=== PATIENT | male | born 1950 | race Caucasian/White ===

== ENCOUNTER 2019-08-05 15:58 | Inpatient (IN) | payer MEDICARE ==
[2019-08-05] MEDS ORDERED: Magnesium 2 GM/50 ML BAG (IN WATER) ONE (16:25)
[2019-08-05 21:05] LABS: Troponin I 0.031 ng/mL (< 0.028)
[2019-08-05 21:07] VITALS: BMI 28.3
[2019-08-05] MEDS ORDERED: Acetaminophen 325 MG TAB PO PRN (22:18)
[2019-08-05] MEDS ORDERED: hydrALAZINE 20 MG/ML VIAL SLOW IVP PRN (22:18)
[2019-08-05] MEDS ORDERED: Bacteriostatic Water 30 ML VIAL FS PRN (22:22)
[2019-08-05] MEDS: Nicotine 14 MG PATCH TD SCH (22:51)
[2019-08-05] MEDS: methylPREDNISolone Sod Succ 40 MG VIAL IVP SCH (22:51)
[2019-08-05] MEDS ORDERED: Finasteride 5 MG TAB PO SCH (23:00)
[2019-08-05] MEDS ORDERED: PARoxetine 20 MG TAB PO SCH (23:00)
[2019-08-05] MEDS ORDERED: Metoprolol Tartrate 50 MG TAB PO SCH (23:00)
[2019-08-05] MEDS ORDERED: Tamsulosin HCl 0.4 MG CAP PO SCH (23:00)
[2019-08-05] MEDS ORDERED: Atorvastatin Calcium 20 MG TAB PO SCH (23:00)
--- NOTE | 2019-08-06 00:12 | HP ---
PRIMARY CARE PHYSICIAN: Erum Aquino, in [place]. CHIEF COMPLAINT: Shortness of breath. HISTORY OF PRESENT ILLNESS: Mr. Wolff is a pleasant 69-year-old gentleman, who has a history of chronic respiratory failure with hypoxemia due to COPD. He says that he was visiting his son and was actually on his way home when he was [place] [facility] [place] and says that he could barely breathe. He says it was building up on him for the past 2 to 3 days. He has noted increasing shortness of breath and decrease in his strength. He feels very shaky. He also notes some serious nasal congestion, which makes it hard for him to breathe through his nose with his oxygen on. He denies having any cough. No shortness of breath. No fever, no chills, no nausea, no vomiting. He says he made his way to the emergency room in [place], where he was found to be hypoxic. The O2 saturation was reported at being 30%. He was given Levaquin, Mag, and a DuoNeb and then transferred to our facility. He says he feels much better. He says he feels like he can walk, but he still is not close to his baseline. Otherwise, the patient notes increasing lower extremity edema, but no other complaints. REVIEW OF SYSTEMS: All systems were reviewed and are negative except for that mentioned in the history of present illness. PAST MEDICAL HISTORY: Significant for hypertension, COPD, he is on 3 L nasal cannula, hypercholesterolemia, gastroesophageal reflux disease, and BPH. PAST SURGICAL HISTORY: He has had a hernia repair. ALLERGIES: HE IS ALLERGIC TO CHANTIX, WHICH CAUSES BAD REACTIONS AND BAD DREAMS. SOCIAL HISTORY: He is . He is a full code. He smokes 6-7 cigarettes daily for the past 50 years. Denies any alcohol or drug use. FAMILY HISTORY: Significant for heart disease in his father. CURRENT MEDICATIONS: 1. Include: Theophylline 300 mg 2 tablets twice daily. 1. Finasteride 5 mg daily. 2. Metoprolol 75 mg in the a.m., 50 in the evening. 3. Chlorthalidone 25 mg daily. 4. Lisinopril 20 mg daily. 5. 3 L of oxygen. 6. Spiriva 118 mcg inhaled daily. 7. Ventolin inhaler. 8. Potassium chloride 10 mEq daily. 9. Symbicort 160/4.5 two puffs twice daily. 10. Simvastatin 40 mg daily. 11. Omeprazole 20 mg daily. PHYSICAL EXAMINATION: GENERAL: He is alert and oriented. He appears to be in some distress due to dyspnea. He is well developed, well nourished blood pressure was 154/67, heart rate 78, respiratory rate of 22, temperature is 98.5, O2 saturation was 100% on 4 L. HEENT: Pupils are equal, round, and reactive. Extraocular muscles are intact. Sclerae anicteric. Throat, no erythema, no exudates. NECK: No adenopathy, no bruits. LUNGS: He has poor air movement and wheezing in both the right and left lung loaiza. CARDIOVASCULAR: He has distant heart tones. The heart rate is regular. There is no murmurs, no clicks, no rubs. ABDOMEN: Obese, it is soft, nontender, and nondistended. Positive for bowel sounds. No rebound. No guarding. No organomegaly. EXTREMITIES: There is no calf tenderness, no joint effusions. He has 1+ edema. NEUROLOGICAL: The exam is grossly nonfocal. LABORATORY DATA: Results were reviewed from [place]. Sodium was 143, potassium is 3.7, chloride is 89, CO2 is 40, BUN of 15, creatinine 0.84, glucose was 160. White blood cell count 11.6, hemoglobin is 14.3, hematocrit is 48.3, and platelet count is 138. IMAGIN. Chest x-ray, heart size is normal. There was no evidence of any infiltrate or edema and this is by my reading. 2. EKG was sinus, the rate was 71. There was evidence of left atrial enlargement also by my reading. ASSESSMENT: 1. This is a pleasant 69-year-old gentleman, who presents with [id number] respiratory failure due to chronic obstructive pulmonary disease. He will be admitted, started on DuoNebs, steroids, and empiric antibiotics. If his symptoms do not improve, then consideration for an ABG will be done and he could require BiPAP later on this night. Depending on how he does, he may also need pulmonary consultation. We will need to check a theophylline level. 2. 3. Hypertension. We will reconcile and restart his home medications. 4. Gastroesophageal reflux disease. Continue proton pump inhibitor. 5. Benign prostatic hypertrophy. Continue finasteride. 6. He will be placed on deep venous thrombosis prophylaxis. Job ID: [id number]
[2019-08-06 04:44] LABS: BUN (Urea Nitrogen) 24 mg/dL (8.4-25.7); Calc. Creatinine Clearance 100 mL/min (70-130); Calcium 9.3 mg/dL (7.8-10.44); Estimated GFR-MDRD 79; Glucose 184 mg/dL (80-115)
[2019-08-06 04:53] LABS: Anion Gap 19 mmol/L (10-20); Carbon Dioxide 34 mmol/L (23-31); Chloride 91 mmol/L (98-107); Potassium 4.3 mmol/L (3.5-5.1); Sodium 140 mmol/L (136-145)
[2019-08-06] MEDS: methylPREDNISolone Sod Succ 40 MG VIAL IVP SCH ×3 (05:24→18:19)
[2019-08-06 05:31] LABS: #Lymphocytes 0.3 thou/uL (1.20-3.40); #Monocytes 0.2 thou/uL (0.11-0.59); #Neutrophils 6.4 thou/uL (1.40-6.50); %Eosinophils 0.2 % (0.0-10.0); %Monocytes 2.4 % (0.0-10.0); %Neutrophils 93.3 % (42.0-75.0); Hemoglobin 13.6 g/dL (14.0-18.0); Mean Corpuscular HGB CONC 32.2 g/dL (32.0-36.0); Mean Corpuscular Hemoglobin 30.9 pg (27.0-31.0); Mean Corpuscular Volume 95.9 fL (78.0-98.0); Mean Platelet Volume 9.2 fL (7.4-10.4); Platelet Count 110 thou/uL (130-400); Platelet Morphology Comment Appears Decreased; RBC Morphology Normal; White Blood Cell (WBC) Count 6.9 thou/uL (4.8-10.8)
[2019-08-06] MEDS: Mometasone/Formoterol 120 PUFF INHALER INH SCH ×2 (06:36→18:57)
[2019-08-06] MEDS: Albuterol Sulfate 1.25 MG/3 ML NEB NEB SCH ×4 (07:00→14:21)
[2019-08-06] MEDS ORDERED: Metoprolol Tartrate 50 MG TAB PO SCH ×2 (09:00→21:00)
[2019-08-06] MEDS ORDERED: Lisinopril 20 MG TAB PO SCH (09:00)
[2019-08-06] MEDS: Enoxaparin Sodium 40 MG/0.4 ML SYRINGE SC SCH (10:05)
[2019-08-06] MEDS: Potassium Chloride 10 MEQ TAB PO SCH ×2 (10:05→18:09)
[2019-08-06] MEDS: Chlorthalidone 25 MG TAB PO SCH ×2 (10:10→10:22)
--- NOTE | 2019-08-06 13:08 | PDOC.HOSPP ---
- Subjective Encounter Date: 08/06/19 Encounter Time: 10:30 Subjective: pt up in bed gets very sob on minimal exertion - Objective Vital Signs & Weight: Vital Signs (12 hours) Temp Pulse Resp BP Pulse Ox 08/06/19 12:55 83 20 100 08/06/19 11:45 98.5 F 80 23 H 123/59 L 92 L 08/06/19 09:46 89 18 97 08/06/19 09:01 98.0 F 75 18 102/50 L 99 08/06/19 06:35 93 20 100 08/06/19 04:52 97.5 F L 80 20 115/56 L 97 08/06/19 02:18 22 H Weight Weight 208 lb 14.4 oz Result Diagrams: 08/06/19 04:04 08/06/19 04:04 Hospitalist ROS - Review of Systems Respiratory: reports: shortness of breath Gastrointestinal: denies: nausea, vomiting, abdominal pain, diarrhea, constipation, melena, hematochezia, other Musculoskeletal: denies: neck pain, shoulder pain, arm pain, back pain, hand pain, leg pain, foot pain, other - Medication Medications: Active Medications Generic Name Dose Route Start Last Admin Trade Name Freq PRN Reason Stop Dose Admin Albuterol Sulfate 1.25 mg 08/05/19 21:00 08/06/19 12:54 Albuterol Sulfate NEB Not Given [id number] NORTH Albuterol/Ipratropium 3 ml 08/05/19 22:30 08/06/19 12:55 Duoneb NEB 3 ml [id number] NORTH Administration Chlorthalidone 25 mg 08/06/19 09:00 08/06/19 10:22 Hygroton PO 25 mg DAILY NORTH Administration Enoxaparin Sodium 40 mg 08/06/19 09:00 08/06/19 10:05 Lovenox SC 40 mg 0900 NORTH Administration Methylprednisolone Sodium Succinate 40 mg 08/05/19 23:59 08/06/19 12:00 Solu-Medrol IVP 40 mg Q6HR NORTH Administration Mometasone Furoate/Formoterol Fumar 1 puff 08/06/19 06:30 08/06/19 06:36 Dulera 200 Mcg/5 Mcg Inhaler INH 1 puff BID-RT NORTH Administration Nicotine 14 mg 08/05/19 23:00 08/05/19 22:51 Nicoderm Patch TD 14 mg Q24HR NORTH Administration Pantoprazole Sodium 40 mg 08/06/19 09:00 08/06/19 10:06 Protonix PO 40 mg DAILY NORTH Administration Potassium Chloride 10 meq 08/06/19 08:00 08/06/19 10:05 Klor-Con 10 PO 10 meq BID-WM NORTH Administration Theophylline 300 mg 08/06/19 09:00 08/06/19 10:06 Theophylline Er PO 300 mg BID NORTH Administration - Exam Neck: negative: supple, symmetric, no JVD, no thyromegaly, no lymphadenopathy, no carotid bruit, JVD Heart: negative: RRR, no murmur, no gallops, no rubs, normal peripheral pulses, irregular, diminshed peripheral pulses, murmur present, II/IV, III/IV Respiratory: rhonchi Respiratory - other findings: minimal air movement Hosp A/P (1) Acute respiratory failure with hypoxia Code(s): J96.01 - ACUTE RESPIRATORY FAILURE WITH HYPOXIA Status: Acute (2) COPD with exacerbation Code(s): J44.1 - CHRONIC OBSTRUCTIVE PULMONARY DISEASE W (ACUTE) EXACERBATION Status: Acute (3) HTN (hypertension) Code(s): I10 - ESSENTIAL (PRIMARY) HYPERTENSION Status: Acute - Plan will continue oxygen/neb and steroids. pt uses 2-3 L of oxygen at home at rest and at ambulation. echo pending. will check RVP.
[2019-08-06] MEDS: Tamsulosin HCl 0.4 MG CAP PO SCH (20:40)
[2019-08-06] MEDS: Finasteride 5 MG TAB PO SCH (20:40)
[2019-08-06] MEDS: Atorvastatin Calcium 20 MG TAB PO SCH (20:40)
[2019-08-06] MEDS: Metoprolol Tartrate 50 MG TAB PO SCH (20:41)
[2019-08-06] MEDS: PARoxetine 20 MG TAB PO SCH (20:41)
[2019-08-07] MEDS: methylPREDNISolone Sod Succ 40 MG VIAL IVP SCH ×3 (00:17→20:27)
[2019-08-07] MEDS: Nicotine 14 MG PATCH TD SCH ×2 (00:17→22:50)
[2019-08-07] MEDS: Albuterol Sulfate 1.25 MG/3 ML NEB NEB SCH ×10 (04:32→21:20)
[2019-08-07 05:08] LABS: BUN (Urea Nitrogen) 28 mg/dL (8.4-25.7); Calc. Creatinine Clearance 111 mL/min (70-130); Calcium 9.3 mg/dL (7.8-10.44); Estimated GFR-MDRD 90; Glucose 146 mg/dL (80-115)
[2019-08-07 05:18] LABS: Anion Gap 14 mmol/L (10-20); Chloride 87 mmol/L (98-107); Sodium 139 mmol/L (136-145)
[2019-08-07 05:22] LABS: Carbon Dioxide 42 mmol/L (23-31)
[2019-08-07] MEDS: Mometasone/Formoterol 120 PUFF INHALER INH SCH ×2 (07:18→18:36)
[2019-08-07] MEDS: Chlorthalidone 25 MG TAB PO SCH (08:51)
[2019-08-07] MEDS: Lisinopril 20 MG TAB PO SCH (08:52)
[2019-08-07] MEDS: Metoprolol Tartrate 50 MG TAB PO SCH ×2 (08:52→20:27)
[2019-08-07] MEDS: Enoxaparin Sodium 40 MG/0.4 ML SYRINGE SC SCH (08:52)
[2019-08-07] MEDS: Potassium Chloride 10 MEQ TAB PO SCH ×2 (09:00→16:42)
[2019-08-07 11:52] LABS: Ref Lab Test Ordered RVP; Reference Lab Name LABCORP
--- NOTE | 2019-08-07 12:44 | PDOC.HOSPP ---
- Subjective Encounter Date: 08/07/19 Encounter Time: 10:30 Subjective: pt up in bed feels sob. But feels well than yesterday. - Objective Vital Signs & Weight: Vital Signs (12 hours) Temp Pulse Resp BP Pulse Ox 08/07/19 12:19 81 18 97 08/07/19 11:10 97.9 F 73 22 H 102/52 L 99 08/07/19 09:57 73 20 100 08/07/19 08:40 97.8 F 93 20 141/64 H 96 08/07/19 08:15 96 08/07/19 07:16 85 18 98 08/07/19 04:32 90 16 89 L 08/07/19 03:30 98 F 84 20 118/56 L 100 08/07/19 02:05 86 16 96 Weight Weight 208 lb 14.4 oz I&O: 08/06/19 08/07/19 08/08/19 06:59 06:59 06:59 Intake Total 240 Output Total 400 Balance -160 Result Diagrams: 08/06/19 04:04 08/07/19 04:23 Hospitalist ROS - Review of Systems Respiratory: reports: shortness of breath Cardiovascular: denies: chest pain, palpitations, orthopnea, paroxysmal noc. dyspnea, edema, light headedness, other Gastrointestinal: denies: nausea, vomiting, abdominal pain, diarrhea, constipation, melena, hematochezia, other - Medication Medications: Active Medications Generic Name Dose Route Start Last Admin Trade Name Freq PRN Reason Stop Dose Admin Albuterol Sulfate 1.25 mg 08/05/19 21:00 08/07/19 04:32 Albuterol Sulfate NEB 1.25 mg [id number] NORTH Administration Albuterol/Ipratropium 3 ml 08/05/19 22:30 08/07/19 09:57 Duoneb NEB 3 ml [id number] NORTH Administration Albuterol/Ipratropium 3 ml 08/06/19 13:06 08/07/19 12:19 Duoneb NEB 3 ml [id number] PRN Administration SOB &/or Wheezing Atorvastatin Calcium 20 mg 08/06/19 21:00 08/06/19 20:40 Lipitor PO 20 mg HS NORTH Administration Chlorthalidone 25 mg 08/06/19 09:00 08/07/19 08:51 Hygroton PO 25 mg DAILY NORTH Administration Enoxaparin Sodium 40 mg 08/06/19 09:00 08/07/19 08:52 Lovenox SC 40 mg 0900 NORTH Administration Finasteride 5 mg 08/06/19 21:00 08/06/19 20:40 Proscar PO 5 mg HS NORTH Administration Levofloxacin 750 mg/ Device 150 mls @ 100 mls/hr 08/06/19 17:00 08/06/19 16: 37 IVPB 150 mls 1700 NORTH Administration Lisinopril 20 mg 08/07/19 09:00 08/07/19 08:52 Zestril PO 20 mg DAILY NORTH Administration Metoprolol Tartrate 50 mg 08/06/19 21:00 08/06/19 20:41 Lopressor PO 50 mg HS NORTH Administration Metoprolol Tartrate 75 mg 08/07/19 09:00 08/07/19 08:52 Lopressor PO 75 mg DAILY NORTH Administration Mometasone Furoate/Formoterol Fumar 1 puff 08/06/19 06:30 08/07/19 07:18 Dulera 200 Mcg/5 Mcg Inhaler INH 1 puff BID-RT NORTH Administration Nicotine 14 mg 08/05/19 23:00 08/07/19 00:17 Nicoderm Patch TD 14 mg Q24HR NORTH Administration Pantoprazole Sodium 40 mg 08/06/19 09:00 08/07/19 08:53 Protonix PO 40 mg DAILY NORTH Administration Paroxetine HCl 20 mg 08/06/19 21:00 08/06/19 20:41 Paxil PO 20 mg HS [facility] Administration Potassium Chloride 10 meq 08/06/19 08:00 08/07/19 09:00 Klor-Con 10 PO 10 meq BID-WM NORTH Administration Tamsulosin HCl 0.4 mg 08/06/19 21:00 08/06/19 20:40 Flomax PO 0.4 mg HS [facility] Administration Theophylline 300 mg 08/06/19 09:00 08/07/19 08:51 Theophylline Er PO 300 mg BID NORTH Administration - Exam Heart: negative: RRR, no murmur, no gallops, no rubs, normal peripheral pulses, irregular, diminshed peripheral pulses, murmur present, II/IV, III/IV Respiratory: rhonchi Gastrointestinal: negative: soft, non-tender, non-distended, normal bowel sounds , no palpable masses, no hepatomegaly, no splenomegaly, no bruit, no guarding, no rigidity, tender to palpation, distended, diminished bowl sounds, voluntary guarding Extremities: negative: no cyanosis, no clubbing, no edema, 1+ LE edema, 2+ LE edema, clubbing Hosp A/P (1) Acute respiratory failure with hypoxia Code(s): J96.01 - ACUTE RESPIRATORY FAILURE WITH HYPOXIA Status: Acute (2) COPD with exacerbation Code(s): J44.1 - CHRONIC OBSTRUCTIVE PULMONARY DISEASE W (ACUTE) EXACERBATION Status: Acute (3) HTN (hypertension) Code(s): I10 - ESSENTIAL (PRIMARY) HYPERTENSION Status: Acute - Plan will continue oxygen/neb and steroids. pt uses 2-3 L of oxygen at home at rest and at ambulation. echo pending. will check RVP. 08/07 will continue current tx, echo ef is 60-65% mild aortic stenosis.
[2019-08-07] MEDS: Tamsulosin HCl 0.4 MG CAP PO SCH (20:27)
[2019-08-07] MEDS: PARoxetine 20 MG TAB PO SCH (20:27)
[2019-08-07] MEDS: Finasteride 5 MG TAB PO SCH (20:27)
[2019-08-07] MEDS: Atorvastatin Calcium 20 MG TAB PO SCH (20:27)
[2019-08-08 05:31] LABS: BUN (Urea Nitrogen) 26 mg/dL (8.4-25.7); Calc. Creatinine Clearance 118 mL/min (70-130); Calcium 9.4 mg/dL (7.8-10.44); Estimated GFR-MDRD Greater than 90; Glucose 136 mg/dL (80-115)
[2019-08-08 05:40] LABS: Anion Gap 15 mmol/L (10-20); Chloride 87 mmol/L (98-107); Sodium 139 mmol/L (136-145)
[2019-08-08 05:42] LABS: Carbon Dioxide 41 mmol/L (23-31)
[2019-08-08] MEDS: Mometasone/Formoterol 120 PUFF INHALER INH SCH ×2 (06:58→19:35)
[2019-08-08] MEDS: Potassium Chloride 10 MEQ TAB PO SCH ×2 (08:24→15:57)
[2019-08-08] MEDS: Chlorthalidone 25 MG TAB PO SCH (08:24)
[2019-08-08] MEDS: methylPREDNISolone Sod Succ 40 MG VIAL IVP SCH ×2 (08:25→20:34)
[2019-08-08] MEDS: Lisinopril 20 MG TAB PO SCH (08:25)
[2019-08-08] MEDS: Enoxaparin Sodium 40 MG/0.4 ML SYRINGE SC SCH (08:25)
[2019-08-08] MEDS: Metoprolol Tartrate 50 MG TAB PO SCH ×2 (08:25→20:34)
[2019-08-08] MEDS ORDERED: methylPREDNISolone Sod Succ 40 MG VIAL IVP SCH (09:00)
[2019-08-08] MEDS: Fluticasone Propionate Nasal Spray 16 gm Bottle NASAL SCH (12:21)
[2019-08-08] MEDS: Simethicone Chewable 80 MG TAB PO PRN ×2 (12:23→16:54)
--- NOTE | 2019-08-08 12:31 | CON ---
DATE OF CONSULTATION: 08/08/2019 CONSULTING PHYSICIAN: Cher Salvador MD REASON FOR CONSULTATION: COPD exacerbation. HISTORY OF PRESENT ILLNESS: Mr. Wolff is a 69-year-old from [place]. He was actually traveling through this area from [place] back to [place] after spending the last week in [place] at [employer]. He made it to [place] where he was noted to be cyanotic and very dyspneic. His O2 saturation was apparently in the 30s. He was brought to the emergency room and subsequently admitted to the hospital. He has had severe COPD for at least 4 years and is on oxygen 3 L nasal cannula. Despite that diagnosis, he is continuing to smoke about 6-7 cigarettes a day, but has a history of smoking two packs a day for about 50 years prior to that. He is currently taking theophyline, Symbicort, albuterol, and Spiriva Respimat inhaler. PAST MEDICAL HISTORY: Otherwise remarkable for hyperlipidemia, gastroesophageal reflux disease and benign prostatic hypertrophy. PAST SURGICAL HISTORY: Hernia repair. ALLERGIES: CHANTIX. SOCIAL HISTORY: Smoking history as outlined above. Does not drink alcohol. He is . His is also a smoker. FAMILY MEDICAL HISTORY: Unremarkable except for heart disease. MEDICATIONS: Listed above. Additionally, he takes 1. Finasteride. 2. Metoprolol. 3. Chlorthalidone. 4. Lisinopril. 5. Potassium chloride. 6. Simvastatin. 7. Omeprazole. REVIEW OF SYSTEMS: Twelve-point review of systems is otherwise negative. PHYSICAL EXAMINATION: VITAL SIGNS: Temperature 98, pulse 77, respirations 20, O2 saturation 93% on 2 L, blood pressure 115/54. GENERAL: He is sitting in a chair. He is in no acute distress. HEENT: Pupils react. Sclerae icteric. Oropharynx clear. NECK: No adenopathy or JVD. LUNGS: He has diffuse mild wheezing bilaterally. No accessory muscle use. CARDIOVASCULAR: S1-S2 regular without audible murmur. ABDOMEN: Soft, nontender, nondistended. EXTREMITIES: No clubbing, cyanosis, or edema. LABORATORY DATA: White blood cell count 6.9, hematocrit 42.2, and platelet count 110. Sodium 139, potassium 4, chloride 87, CO2 of 41, BUN 26, creatinine 0.8, glucose 136. An echocardiogram demonstrates [id number] aortic stenosis with EF of 60%-65%. Normal right ventricle. X-ray shows hyperinflation without evidence of mass, effusion, or infiltrate. ASSESSMENT: 1. Acute hypercapnic respiratory failure secondary to chronic obstructive pulmonary disease exacerbation. 2. Eixc-yo-[id number] aortic stenosis. 3. Continued tobacco abuse. PLAN: 1. This patient should be managed with steroids, antibiotics, and nebulization treatments as you are doing. Additionally, I would continue him on his Symbicort and Spiriva as an outpatient. I do not normally recommend using theophylline, but I will leave that to his physician at [place]. 2. Continue home oxygen. 3. Smoking cessation was advised. 4. Probably will be able to go home tomorrow or Tuesday. 5. When he gets home, I have suggested that he go see information security specialist in [place] and be considered for a Trilogy ventilator to wear at night. Thank you for the referral. The above encompassed 70 minutes of time. Of that time, greater than 50% spent with the patient and/or the patient's unit in the hospital. Job ID: [id number]
--- NOTE | 2019-08-08 16:56 | PDOC.HOSPP ---
- Subjective Encounter Date: 08/08/19 Encounter Time: 11:15 Subjective: pt up in chair feels better than yesterday. - Objective Vital Signs & Weight: Vital Signs (12 hours) Temp Pulse Resp BP Pulse Ox 08/08/19 16:00 98.2 F 81 18 128/59 L 94 L 08/08/19 14:28 73 20 08/08/19 11:20 98.0 F 77 20 115/54 L 93 L 08/08/19 10:31 68 16 08/08/19 08:00 97.3 F L 78 20 135/62 95 08/08/19 06:58 95 08/08/19 06:57 74 18 95 Weight Weight 208 lb 14.4 oz I&O: 08/07/19 08/08/19 08/09/19 06:59 06:59 06:59 Intake Total 240 240 480 Output Total 400 625 600 Balance -160 -385 -120 Result Diagrams: 08/06/19 04:04 08/08/19 04:30 Hospitalist ROS - Review of Systems Cardiovascular: denies: chest pain, palpitations, orthopnea, paroxysmal noc. dyspnea, edema, light headedness, other Gastrointestinal: denies: nausea, vomiting, abdominal pain, diarrhea, constipation, melena, hematochezia, other Genitourinary: denies: dysuria, frequency, incontinence, hematuria, retention, other - Medication Medications: Active Medications Generic Name Dose Route Start Last Admin Trade Name Freq PRN Reason Stop Dose Admin Albuterol/Ipratropium 3 ml 08/05/19 22:30 08/08/19 14:28 Duoneb NEB 3 ml [id number] NORTH Administration Albuterol/Ipratropium 3 ml 08/06/19 13:06 08/07/19 16:05 Duoneb NEB 3 ml [id number] PRN Administration SOB &/or Wheezing Atorvastatin Calcium 20 mg 08/06/19 21:00 08/07/19 20:27 Lipitor PO 20 mg HS NORTH Administration Enoxaparin Sodium 40 mg 08/06/19 09:00 08/08/19 08:25 Lovenox SC 40 mg 0900 NORTH Administration Finasteride 5 mg 08/06/19 21:00 08/07/19 20:27 Proscar PO 5 mg HS NORTH Administration Fluticasone Propionate 1 gm 08/08/19 10:30 08/08/19 12:21 Flonase Nasal [place] NASAL 2 sprays DAILY NORTH Administration Levofloxacin 750 mg/ Device 150 mls @ 100 mls/hr 08/06/19 17:00 08/08/19 15: 57 IVPB 150 mls 1700 NORTH Administration Lisinopril 20 mg 08/07/19 09:00 08/08/19 08:25 Zestril PO 20 mg DAILY NORTH Administration Methylprednisolone Sodium Succinate 40 mg 08/07/19 21:00 08/08/19 08:25 Solu-Medrol IVP 40 mg BID NORTH Administration Metoprolol Tartrate 50 mg 08/06/19 21:00 08/07/19 20:27 Lopressor PO 50 mg HS [facility] Administration Metoprolol Tartrate 75 mg 08/07/19 09:00 08/08/19 08:25 Lopressor PO 75 mg DAILY NORTH Administration Mometasone Furoate/Formoterol Fumar 1 puff 08/06/19 06:30 08/08/19 06:58 Dulera 200 Mcg/5 Mcg Inhaler INH 1 puff BID-RT NORTH Administration Nicotine 14 mg 08/05/19 23:00 08/07/19 22:50 Nicoderm Patch TD 14 mg Q24HR NORTH Administration Pantoprazole Sodium 40 mg 08/06/19 09:00 08/08/19 08:26 Protonix PO 40 mg DAILY NORTH Administration Paroxetine HCl 20 mg 08/06/19 21:00 08/07/19 20:27 Paxil PO 20 mg HS [facility] Administration Potassium Chloride 10 meq 08/06/19 08:00 08/08/19 15:57 Klor-Con 10 PO 10 meq BID-WM NORTH Administration Simethicone 80 mg 08/08/19 10:30 08/08/19 16:54 Mylicon Chewable PO 80 mg PCHS PRN Administration Gas Pain Tamsulosin HCl 0.4 mg 08/06/19 21:00 08/07/19 20:27 Flomax PO 0.4 mg HS NORTH Administration Theophylline 300 mg 08/06/19 09:00 08/08/19 08:26 Theophylline Er PO 300 mg BID NORTH Administration - Exam Neck: negative: supple, symmetric, no JVD, no thyromegaly, no lymphadenopathy, no carotid bruit, JVD Heart: negative: RRR, no murmur, no gallops, no rubs, normal peripheral pulses, irregular, diminshed peripheral pulses, murmur present, II/IV, III/IV Respiratory: rhonchi, wheezes Gastrointestinal: negative: soft, non-tender, non-distended, normal bowel sounds , no palpable masses, no hepatomegaly, no splenomegaly, no bruit, no guarding, no rigidity, tender to palpation, distended, diminished bowl sounds, voluntary guarding Hosp A/P (1) Acute respiratory failure with hypoxia Code(s): J96.01 - ACUTE RESPIRATORY FAILURE WITH HYPOXIA Status: Acute (2) COPD with exacerbation Code(s): J44.1 - CHRONIC OBSTRUCTIVE PULMONARY DISEASE W (ACUTE) EXACERBATION Status: Acute (3) HTN (hypertension) Code(s): I10 - ESSENTIAL (PRIMARY) HYPERTENSION Status: Acute - Plan will continue oxygen/neb and steroids. pt uses 2-3 L of oxygen at home at rest and at ambulation. echo pending. will check RVP. 08/07 will continue current tx, echo ef is 60-65% mild aortic stenosis. 08/08 pt feels a bit better however given his slow progression will get pulmonary given his sever disease. pt does not have a nebulizer will rx.
[2019-08-08] MEDS: Atorvastatin Calcium 20 MG TAB PO SCH (20:34)
[2019-08-08] MEDS: Finasteride 5 MG TAB PO SCH (20:34)
[2019-08-08] MEDS: PARoxetine 20 MG TAB PO SCH (20:34)
[2019-08-08] MEDS: Tamsulosin HCl 0.4 MG CAP PO SCH (20:34)
[2019-08-08] MEDS: Nicotine 14 MG PATCH TD SCH (23:22)
[2019-08-09] MEDS: Mometasone/Formoterol 120 PUFF INHALER INH SCH ×2 (07:12→19:29)
[2019-08-09] MEDS: Lisinopril 20 MG TAB PO SCH (10:19)
[2019-08-09] MEDS: Potassium Chloride 10 MEQ TAB PO SCH ×2 (10:20→17:04)
[2019-08-09] MEDS: Enoxaparin Sodium 40 MG/0.4 ML SYRINGE SC SCH (10:20)
[2019-08-09] MEDS: methylPREDNISolone Sod Succ 40 MG VIAL IVP SCH ×2 (10:20→20:56)
[2019-08-09] MEDS: Metoprolol Tartrate 50 MG TAB PO SCH ×2 (10:20→20:56)
[2019-08-09] MEDS: Fluticasone Propionate Nasal Spray 16 gm Bottle NASAL SCH (10:21)
--- NOTE | 2019-08-09 10:49 | PRG ---
DATE OF SERVICE: 08/09/2019 SUBJECTIVE: The patient feels about the same, but does not quite feel ready enough for discharge. OBJECTIVE: VITAL SIGNS: Temperature 97.4, pulse 71, respirations 18, O2 saturation 100% on 3 L, blood pressure 144/65. HEENT: Unremarkable. NECK: No adenopathy or JVD. LUNGS: He has inspiratory and expiratory rhonchi. CARDIOVASCULAR: S1 and S2, regular. ABDOMEN: Soft. EXTREMITIES: No edema. ASSESSMENT: 1. Chronic obstructive pulmonary disease with severe exacerbation. 2. Chronic hypercapnic respiratory failure. PLAN: Continue nebulization treatments, antibiotics, and steroids. He probably needs another day or two in the hospital. He had several good questions. One was about alpha-1 antitrypsin testing. I told him he should get that done when he sees his instrumentation fitter in [place]. I wrote him prescription for nebulization solution - DuoNeb and for ProAir metered-dose inhaler that his can go ahead and get filled in the pharmacy before he leaves [facility]. Job ID: [id number]
--- NOTE | 2019-08-09 15:16 | PDOC.HOSPP ---
- Subjective Encounter Date: 08/09/19 Encounter Time: 15:14 Subjective: pt up in bed feels better today, but at night he keeps asking for neb tx. - Objective Vital Signs & Weight: Vital Signs (12 hours) Temp Pulse Resp BP BP Pulse Ox 08/09/19 14:49 79 20 08/09/19 13:07 66 16 96 08/09/19 11:15 98.5 F 73 21 H 150/65 H 95 08/09/19 10:59 71 16 08/09/19 10:19 144/65 H 08/09/19 07:50 97.4 F L 71 18 144/65 H 100 08/09/19 07:13 95 08/09/19 07:12 75 20 95 08/09/19 03:40 97.4 F L 71 18 131/59 L 98 Weight Weight 208 lb 14.4 oz I&O: 08/08/19 08/09/19 08/10/19 06:59 06:59 06:59 Intake Total 240 960 Output Total 625 1225 Balance -385 -265 Result Diagrams: 08/06/19 04:04 08/08/19 04:30 Hospitalist ROS - Review of Systems Cardiovascular: denies: chest pain, palpitations, orthopnea, paroxysmal noc. dyspnea, edema, light headedness, other Gastrointestinal: denies: nausea, vomiting, abdominal pain, diarrhea, constipation, melena, hematochezia, other Genitourinary: denies: dysuria, frequency, incontinence, hematuria, retention, other - Medication Medications: Active Medications Generic Name Dose Route Start Last Admin Trade Name Freq PRN Reason Stop Dose Admin Albuterol/Ipratropium 3 ml 08/05/19 22:30 08/09/19 14:49 Duoneb NEB 3 ml [id number] [facility] Administration Albuterol/Ipratropium 3 ml 08/06/19 13:06 08/09/19 13:07 Duoneb NEB 3 ml [id number] PRN Administration SOB &/or Wheezing Atorvastatin Calcium 20 mg 08/06/19 21:00 08/08/19 20:34 Lipitor PO 20 mg HS [facility] Administration Enoxaparin Sodium 40 mg 08/06/19 09:00 08/09/19 10:20 Lovenox SC 40 mg 0900 [facility] Administration Finasteride 5 mg 08/06/19 21:00 08/08/19 20:34 Proscar PO 5 mg HS [facility] Administration Fluticasone Propionate 1 gm 08/08/19 10:30 08/09/19 10:21 Flonase Nasal Cascade NASAL 1 sprays DAILY [facility] Administration Levofloxacin 750 mg/ Device 150 mls @ 100 mls/hr 08/06/19 17:00 08/08/19 15: 57 IVPB 150 mls 1700 [facility] Administration Lisinopril 20 mg 08/07/19 09:00 08/09/19 10:19 Zestril PO 20 mg DAILY [facility] Administration Methylprednisolone Sodium Succinate 40 mg 08/07/19 21:00 08/09/19 10:20 Solu-Medrol IVP 40 mg BID [facility] Administration Metoprolol Tartrate 50 mg 08/06/19 21:00 08/08/19 20:34 Lopressor PO 50 mg HS [facility] Administration Metoprolol Tartrate 75 mg 08/07/19 09:00 08/09/19 10:20 Lopressor PO 75 mg DAILY [facility] Administration Mometasone Furoate/Formoterol Fumar 1 puff 08/06/19 06:30 08/09/19 07:12 Dulera 200 Mcg/5 Mcg Inhaler INH 1 puff BID-RT [facility] Administration Nicotine 14 mg 08/05/19 23:00 08/08/19 23:22 Nicoderm Patch TD 14 mg Q24HR [facility] Administration Pantoprazole Sodium 40 mg 08/06/19 09:00 08/09/19 10:20 Protonix PO 40 mg DAILY [facility] Administration Paroxetine HCl 20 mg 08/06/19 21:00 08/08/19 20:34 Paxil PO 20 mg HS [facility] Administration Potassium Chloride 10 meq 08/06/19 08:00 08/09/19 10:20 Klor-Con 10 PO 10 meq BID-WM [facility] Administration Simethicone 80 mg 08/08/19 10:30 08/08/19 16:54 Mylicon Chewable PO 80 mg PCHS PRN Administration Gas Pain Tamsulosin HCl 0.4 mg 08/06/19 21:00 08/08/19 20:34 Flomax PO 0.4 mg HS [facility] Administration Theophylline 300 mg 08/06/19 09:00 08/09/19 10:20 Theophylline Er PO 300 mg BID [facility] Administration - Exam Heart: negative: RRR, no murmur, no gallops, no rubs, normal peripheral pulses, irregular, diminshed peripheral pulses, murmur present, II/IV, III/IV Respiratory: rhonchi, wheezes Gastrointestinal: negative: soft, non-tender, non-distended, normal bowel sounds , no palpable masses, no hepatomegaly, no splenomegaly, no bruit, no guarding, no rigidity, tender to palpation, distended, diminished bowl sounds, voluntary guarding Extremities: negative: no cyanosis, no clubbing, no edema, 1+ LE edema, 2+ LE edema, clubbing Hosp A/P (1) Acute respiratory failure with hypoxia Code(s): J96.01 - ACUTE RESPIRATORY FAILURE WITH HYPOXIA Status: Acute (2) COPD with exacerbation Code(s): J44.1 - CHRONIC OBSTRUCTIVE PULMONARY DISEASE W (ACUTE) EXACERBATION Status: Acute (3) HTN (hypertension) Code(s): I10 - ESSENTIAL (PRIMARY) HYPERTENSION Status: Acute - Plan will continue oxygen/neb and steroids. pt uses 2-3 L of oxygen at home at rest and at ambulation. echo pending. will check RVP. 08/07 will continue current tx, echo ef is 60-65% mild aortic stenosis. 08/08 pt feels a bit better however given his slow progression will get pulmonary given his sever disease. pt does not have a nebulizer will rx. 08/09 will continue current tx, will give her a nebulizer rx. possible home in 24 -48hr.
[2019-08-09] MEDS: Atorvastatin Calcium 20 MG TAB PO SCH (20:56)
[2019-08-09] MEDS: Tamsulosin HCl 0.4 MG CAP PO SCH (20:56)
[2019-08-09] MEDS: Finasteride 5 MG TAB PO SCH (20:56)
[2019-08-09] MEDS: PARoxetine 20 MG TAB PO SCH (20:56)
[2019-08-09] MEDS: Nicotine 14 MG PATCH TD SCH (22:25)
[2019-08-10] MEDS: Mometasone/Formoterol 120 PUFF INHALER INH SCH ×2 (06:31→18:59)
[2019-08-10] MEDS: Enoxaparin Sodium 40 MG/0.4 ML SYRINGE SC SCH (08:37)
[2019-08-10] MEDS: Potassium Chloride 10 MEQ TAB PO SCH ×2 (08:37→16:56)
[2019-08-10] MEDS: Fluticasone Propionate Nasal Spray 16 gm Bottle NASAL SCH (08:37)
[2019-08-10] MEDS: Metoprolol Tartrate 50 MG TAB PO SCH ×2 (08:42→20:28)
[2019-08-10] MEDS: Lisinopril 20 MG TAB PO SCH (08:43)
[2019-08-10] MEDS: methylPREDNISolone Sod Succ 40 MG VIAL IVP SCH ×2 (08:43→20:29)
--- NOTE | 2019-08-10 09:15 | PRG ---
DATE OF SERVICE: 08/10/2019 SUBJECTIVE: Mr. Wolff appears to be doing much better. He has no complaints at current time. OBJECTIVE: VITAL SIGNS: Temperature 98.5, pulse 72, blood pressure 141/64, O2 saturation 98% on 3 L. HEENT: Unremarkable. NECK: No adenopathy or JVD. LUNGS: Free of wheezing today. CARDIAC: S1, S2. Regular. ABDOMEN: Soft. EXTREMITIES: No edema. ASSESSMENT: Chronic obstructive pulmonary disease exacerbation. PLAN: From my standpoint, he is stable for discharge. There are going to be some issues with traveling to [place] today because of the weather, so it might be best letting him go tomorrow. He should go home on a 2-week taper prednisone, finish out antibiotics, continue his Symbicort, Spiriva, nebulization regimen, and home oxygen. He will follow up in [place]. Job ID: [id number]
--- NOTE | 2019-08-10 10:50 | PRG ---
DATE OF SERVICE: 08/10/2019 SUBJECTIVE: The patient is seen at bedside, says he is feeling better, but still has shortness of breath and minimal activity causing shortness of breath to get worse. Denies any chest pain, headache, or dizziness. Complains of swelling of the feet, been taking chlorthalidone outpatient. OBJECTIVE: VITAL SIGNS: Blood pressure 141/64, temperature 98.5, pulse 72, respirations 20, oxygen saturation 98% on 3 L nasal cannula. GENERAL: The patient is resting in bed comfortably, in no distress, however, mildly tachypneic. HEENT: Conjunctivae are normal. Oral mucosa is moist. NECK: Supple. No JVD. CHEST: Decreased air entry in bilateral lower lung loaiza. No rhonchi at present. HEART: Sounds normal. ABDOMEN: Soft. EXTREMITIES: Bilateral edema of feet positive. IMPRESSION AND PLAN: 1. [id number] hypoxemic respiratory failure, most likely secondary to chronic obstructive pulmonary disease exacerbation. Continue nebulization, steroids, antibiotics, and continue oxygen. 2. Hypertension. Continue to monitor blood pressure. Continue home medication. 3. Moderate aortic stenosis on echo. We will recommend to follow up outpatient with Cardiology. 4. Swelling of the feet, possible component of venous insufficiency. We will continue home doses of chlorthalidone. 5. Deep venous thrombosis and gastrointestinal prophylaxis. Plan was discussed with the patient and nursing staff. Job ID: [id number]
[2019-08-10] MEDS ORDERED: Simethicone Chewable 80 MG TAB PO PRN (16:08)
[2019-08-10] MEDS: Simethicone Chewable 80 MG TAB PO PRN ×2 (16:56→20:28)
[2019-08-10] MEDS: Tamsulosin HCl 0.4 MG CAP PO SCH (20:28)
[2019-08-10] MEDS: Finasteride 5 MG TAB PO SCH (20:28)
[2019-08-10] MEDS: Atorvastatin Calcium 20 MG TAB PO SCH (20:28)
[2019-08-10] MEDS: PARoxetine 20 MG TAB PO SCH (20:28)
[2019-08-11] MEDS: Nicotine 14 MG PATCH TD SCH (01:19)
[2019-08-11] MEDS: Mometasone/Formoterol 120 PUFF INHALER INH SCH (06:50)
[2019-08-11] MEDS: Potassium Chloride 10 MEQ TAB PO SCH (08:02)
[2019-08-11] MEDS: Fluticasone Propionate Nasal Spray 16 gm Bottle NASAL SCH (08:05)
[2019-08-11] MEDS: Lisinopril 20 MG TAB PO SCH (08:05)
[2019-08-11] MEDS: methylPREDNISolone Sod Succ 40 MG VIAL IVP SCH (08:08)
[2019-08-11] MEDS: Metoprolol Tartrate 50 MG TAB PO SCH (08:09)
[2019-08-11] MEDS ORDERED: Chlorthalidone 25 MG TAB PO SCH (09:00)
[2019-08-11 09:23] LABS: #Lymphocytes 0.9 thou/uL (1.20-3.40); #Monocytes 0.9 thou/uL (0.11-0.59); #Neutrophils 9.5 thou/uL (1.40-6.50); %Basophils 0.3 % (0.0-1.0); %Eosinophils 0.1 % (0.0-10.0); %Lymphocytes 7.9 % (21.0-51.0); %Monocytes 8.1 % (0.0-10.0); %Neutrophils 83.5 % (42.0-75.0); Hemoglobin 14.9 g/dL (14.0-18.0); Mean Corpuscular HGB CONC 32.2 g/dL (32.0-36.0); Mean Corpuscular Hemoglobin 30.5 pg (27.0-31.0); Mean Corpuscular Volume 94.6 fL (78.0-98.0); Mean Platelet Volume 7.6 fL (7.4-10.4); Platelet Count 135 thou/uL (130-400); RBC Distribution Width 11.7 % (11.5-14.5); Red Blood Cell (RBC) Count 4.88 mill/uL (4.70-6.10); White Blood Cell (WBC) Count 11.4 thou/uL (4.8-10.8)
[2019-08-11 09:55] LABS: BUN (Urea Nitrogen) 24 mg/dL (8.4-25.7); Calc. Creatinine Clearance 121 mL/min (70-130); Calcium 9.2 mg/dL (7.8-10.44); Estimated GFR-MDRD Greater than 90; Glucose 169 mg/dL (80-115)
[2019-08-11 10:05] LABS: Anion Gap 15 mmol/L (10-20); Carbon Dioxide 40 mmol/L (23-31); Chloride 85 mmol/L (98-107); Potassium 4.1 mmol/L (3.5-5.1); Sodium 136 mmol/L (136-145)
[2019-08-11] MEDS: Enoxaparin Sodium 40 MG/0.4 ML SYRINGE SC SCH (12:18)
[2019-08-11 12:42] VITALS: TEMP 97.1
--- NOTE | 2019-08-11 13:14 | PRG ---
DATE OF SERVICE: 08/11/2019 SUBJECTIVE: This morning, he is better. He is still short of breath, but less cough. OBJECTIVE: VITAL SIGNS: Temperature 97, pulse 61, blood pressure 130/63, respirations 18, and saturations 96% on 3 L. CHEST: Decreased breath sounds. No wheezing. CARDIAC: Normal S1 and S2. No gallops. ABDOMEN: No masses. ASSESSMENT: 1. Chronic obstructive pulmonary disease exacerbation. 2. Bronchitis. PLAN: He is told to increase his level of activity. Continue PT, supportive care. We will follow. Job ID: [id number]
[2019-08-11 14:07] VITALS: BP 145/63
--- NOTE | 2019-08-13 12:57 | DIS ---
DATE OF ADMISSION: 08/05/2019 DATE OF DISCHARGE: 08/11/2019 DISCHARGE DIAGNOSES: 1. Acute on chronic hypoxemic respiratory failure, most likely secondary to chronic obstructive pulmonary disease exacerbation. 2. Hypertension. 3. Moderate aortic stenosis on echo. 4. Bilateral venous insufficiency. 5. Thrombocytopenia. PHYSICAL EXAMINATION: VITAL SIGNS: On discharge, blood pressure 133/63, temperature 98.1, pulse 73, respirations 18, and oxygen saturation 97%. GENERAL: The patient is sitting in bed comfortably in no distress. HEENT: Conjunctivae normal. Oral mucosa moist. NECK: Supple. No JVD. CHEST: Normal vesicular breathing. HEART: Heart sounds normal. ABDOMEN: Soft. EXTREMITIES: Bilateral edema in feet positive. LABORATORY DATA: CBC unremarkable with a white blood cell of 11.4. BMP unremarkable except for chloride of 85 and bicarb of 40. Theophylline level 3.6. HOSPITAL SUMMARY: The patient, Keyshawn Wolff, admitted with shortness of breath, cough, and wheezing. The patient was admitted with COPD exacerbation and acute on chronic hypoxemic respiratory failure. The patient was treated with steroids, nebs, and oxygen. The patient was evaluated by tooling supervisor. The patient's breathing is better and wheezing is better. The patient is being discharged home on p.o. antibiotics and steroids taper dose. The patient also had echo performed, which showed moderate aortic stenosis. The patient is advised to follow up outpatient with coating technician. The patient is currently stable, being discharged home, and advised to follow up PCP, Pulmonology and Cardiology. Plan discussed with the patient and nursing staff in detail. Job ID: [id number]
--- NOTE | 2019-08-18 11:44 | EKG ---
Test Reason : Blood Pressure : / mmHG Vent. Rate : 071 BPM Atrial Rate : 071 BPM P-R Int : 188 ms QRS Dur : 090 ms QT Int : 370 ms P-R-T Axes : 080 072 068 degrees QTc Int : 402 ms Normal sinus rhythm Possible Left atrial enlargement ST elevation, consider early repolarization Borderline ECG Confirmed by BERTHA TY ([id number]), science editor KALRIE BRUSH ([id number]) on 08/18/2019 11:44:37 AM Referred By: Confirmed By:BERTHA TY
--- NOTE | 2019-08-18 11:45 | EKG ---
Test Reason : Blood Pressure : / mmHG Vent. Rate : 068 BPM Atrial Rate : 068 BPM P-R Int : 190 ms QRS Dur : 088 ms QT Int : 374 ms P-R-T Axes : 079 073 066 degrees QTc Int : 397 ms Normal sinus rhythm Possible Left atrial enlargement Borderline ECG Confirmed by BERTHA TY ([id number]), editorial cartoonist KARLIE BRUSH ([id number]) on 08/18/2019 11:44:53 AM Referred By: Confirmed By:BERTHA TY
== END 2019-08-11 16:22 | disposition home or self-care (01) | DRG 189 ==
LOC: EDBD 15:58 → ERS 15:58 → 2NO 17:03 → ERS 18:51
PROVIDERS: ADMIT Family Medicine; ATTEND Family Medicine
DX: J96.21 Acute and chronic respiratory failure with hypoxia (principal); J44.1 Chronic obstructive pulmonary disease with (acute) exacerbation; I10 Essential (primary) hypertension; I35.0 Nonrheumatic aortic (valve) stenosis; I87.2 Venous insufficiency (chronic) (peripheral); D69.6 Thrombocytopenia, unspecified; K21.9 Gastro-esophageal reflux disease without esophagitis; N40.0 Benign prostatic hyperplasia without lower urinary tract symptoms; F17.210 Nicotine dependence, cigarettes, uncomplicated; E78.00 Pure hypercholesterolemia, unspecified; Z88.8 Allergy status to other drugs, medicaments and biological substances; Z71.6 Tobacco abuse counseling
CPT/HCPCS: 36415; 80048; 80198; 83880; 85025; 87633; 93005; 93306; 94640; 96365; J1650; J1956; J2920; J3475; J7620